=== PATIENT | male | born 1965 | race Caucasian/White ===

== ENCOUNTER 2022-03-20 08:17 | Day surgery (SDC) | payer OTHER ==
[~2022-03-20 08:17] MED LIST: Sodium Chloride 0.9% 10 ML Syringe FLUSH PRN
[2022-03-20] MEDS ORDERED: Propofol 200 MG/20 ML SDV IV ONE (08:18)
[2022-03-20] MEDS ORDERED: Lidocaine 2% 100 MG/5 ML Syringe IVPUSH ONE (08:18)
[2022-03-20] MEDS: Lactated Ringers 1,000 ML IV SCH (09:05)
== END 2022-03-20 11:05 | disposition home or self-care (01) ==
LOC: FB.SDS 08:17
PROVIDERS: ATTEND Surgery
DX: K57.30 Diverticulosis of large intestine without perforation or abscess without bleeding (principal); I10 Essential (primary) hypertension; Z79.899 Other long term (current) drug therapy; Z79.82 Long term (current) use of aspirin; Z98.890 Other specified postprocedural states; Z87.891 Personal history of nicotine dependence
CPT/HCPCS: 00811; J2704; J7120